=== PATIENT | male | born 1960 | race Caucasian/White ===

== ENCOUNTER 2020-08-23 08:57 | Outpatient (CLI) | payer OTHER | END 2020-08-23 09:12 | disposition home or self-care (01) | LOC: TOM 08:57 | DX: R10.84 Generalized abdominal pain (principal) ==

== ENCOUNTER 2020-08-28 08:18 | Outpatient (CLI) | payer OTHER | END 2020-08-28 08:21 | disposition home or self-care (01) | LOC: LAB 08:18 | PROVIDERS: ATTEND Urology | DX: N40.0 Benign prostatic hyperplasia without lower urinary tract symptoms (principal) ==